=== PATIENT | female | born 1975 | race Hispanic/Latino ===

== ENCOUNTER 2018-03-12 02:47 | Emergency (ER) | payer BC, MEDICAID ==
[2018-03-12] MEDS ORDERED: ASPIRIN PO ONE (03:12)
[2018-03-12 03:54] LABS: Basophils # (Auto) 0.1 K/mm3 (0.0-0.1); Basophils % (Auto) 0.7 % (0.0-1.8); Eosinophils # (Auto) 0.2 K/mm3 (0.0-0.4); Eosinophils % (Auto) 3.4 % (0.0-4.3); Hematocrit 42.8 % (30.3-42.9); Hemoglobin 14.6 gm/dl (10.1-14.3); Lymphocytes # (Auto) 2.1 K/mm3 (1.2-5.4); Lymphocytes % (Auto) 29.2 % (13.4-35.0); Mean Corpuscular HGB Conc 34 % (30-34); Mean Corpuscular Hemoglobin 34 pg (28-32); Mean Corpuscular Volume 99 fl (79-97); Monocytes # (Auto) 0.5 K/mm3 (0.0-0.8); Monocytes % (Auto) 7.2 % (0.0-7.3); Platelet Count 250 K/mm3 (140-440); Red Blood Count 4.32 M/mm3 (3.65-5.03)
[2018-03-12 04:29] LABS: BUN/Creatinine Ratio 20; Blood Urea Nitrogen 14 mg/dL (7-17); Calcium 9.3 mg/dL (8.4-10.2); Hemolysis Index 10
[2018-03-12] MEDS ORDERED: NACL 0.9% 1000 ML 1,000 ML IV ONE (05:08)
[2018-03-12 05:19] LABS: Bilirubin,Urine NEG (Negative); Blood,Urine NEG (Negative); Color,Urine Straw (Yellow); Mucus,Urine FEW /HPF; Protein,Urine <15 mg/dL mg/dL (Negative); Urobilinogen,Urine < 2.0 mg/dL (<2.0)
[2018-03-12 05:20] LABS: HCG Qualitative,Urine Negative (Negative)
[2018-03-12 05:27] LABS: Amphetamine Screen,Urine PRESUMPTIVE NEGATIVE; Benzodiazepines Screen,Urine PRESUMPTIVE NEGATIVE; Cocaine Screen,Urine PRESUMPTIVE NEGATIVE; Methadone Screen,Urine PRESUMPTIVE NEGATIVE; Opiate Screen,Urine PRESUMPTIVE NEGATIVE
[2018-03-12 05:44] LABS: Cannabinoid Screen,Urine PRESUMPTIVE POSITIVE
--- NOTE | 2018-03-12 05:57 | Emergency Department Report ---
HPI - General Chief Complaint: Arrhythmia/Palpitations Time Seen by Provider: 03/12/18 03:38 - HPI HPI: 42-year-old female with history of tachycardia, was at home and felt some palpitations and a heart rate going up. She called ambulance or by the time they get their heart rate had gone back down to normal. She continued to ED for further eval. She denies any chest pain, shortness of breath. She stated that she was placed on the beta guanaco but could not tolerated due to the low blood pressure and fatigue. ED Past Medical Hx - Past Medical History Previous Medical History?: Yes Hx Asthma: Yes Additional medical history: SVT - Surgical History Past Surgical History?: No - Social History Smoking Status: Current Every Day Smoker Substance Use Type: Marijuana ED Review of Systems ROS: Stated complaint: CHEST PAIN Other details as noted in HPI Physical Exam - Physical Exam Vital Signs: Vital Signs 03/12/18 03/12/18 03/12/18 02:55 03:00 03:07 Temperature Pulse Rate 88 88 86 Respiratory 26 H 16 Rate Blood Pressure 102/71 102/71 102/71 O2 Sat by Pulse 95 97 96 Oximetry 03/12/18 03/12/18 03/12/18 03:16 03:23 03:30 Temperature 98.0 F Pulse Rate 84 94 H Respiratory 16 20 Rate Blood Pressure 106/47 95/42 O2 Sat by Pulse 96 97 Oximetry 03/12/18 03/12/18 03/12/18 03:32 03:46 04:00 Temperature Pulse Rate 92 H 91 H 90 Respiratory 18 22 18 Rate Blood Pressure 95/42 117/60 O2 Sat by Pulse 97 95 95 Oximetry 03/12/18 04:16 Temperature Pulse Rate 89 Respiratory 18 Rate Blood Pressure 110/61 O2 Sat by Pulse 95 Oximetry ED Course Vital Signs 03/12/18 03/12/18 03/12/18 02:55 03:00 03:07 Temperature Pulse Rate 88 88 86 Respiratory 26 H 16 Rate Blood Pressure 102/71 102/71 102/71 O2 Sat by Pulse 95 97 96 Oximetry 03/12/18 03/12/18 03/12/18 03:16 03:23 03:30 Temperature 98.0 F Pulse Rate 84 94 H Respiratory 16 20 Rate Blood Pressure 106/47 95/42 O2 Sat by Pulse 96 97 Oximetry 03/12/18 03/12/18 03/12/18 03:32 03:46 04:00 Temperature Pulse Rate 92 H 91 H 90 Respiratory 18 22 18 Rate Blood Pressure 95/42 117/60 O2 Sat by Pulse 97 95 95 Oximetry 03/12/18 04:16 Temperature Pulse Rate 89 Respiratory 18 Rate Blood Pressure 110/61 O2 Sat by Pulse 95 Oximetry ED Medical Decision Making - Lab Data Result diagrams: 03/12/18 03:31 03/12/18 03:31 Critical care attestation.: If time is entered above; I have spent that time in minutes in the direct care of this critically ill patient, excluding procedure time. ED Disposition Clinical Impression: Tachycardia Disposition: DC-01 TO HOME OR SELFCARE Is pt being admited?: No Does the pt Need Aspirin: No Condition: Stable Instructions: Supraventricular Tachycardia (ED), Palpitations (ED) Referrals: PRIMARY CARE, [Primary Care Provider] - 3-5 Days BETHANY MALCOLM MD [Staff Physician] - 3-5 Days
[2018-03-12 06:28] VITALS: BP 122/92
== END 2018-03-12 06:28 | disposition home or self-care (01) ==
LOC: ED 02:47
DX: R00.0 Tachycardia, unspecified (principal); J45.909 Unspecified asthma, uncomplicated; F17.200 Nicotine dependence, unspecified, uncomplicated; F12.10 Cannabis abuse, uncomplicated
CPT/HCPCS: 36415; 80048; 80307; 81001; 81025; 84484; 85025; 93005; 93010; 99284; J7030

== ENCOUNTER 2019-07-14 17:48 | Emergency (ER) | payer SELFPAY ==
[2019-07-14 18:02] VITALS: BP 148/90
== END 2019-07-14 18:45 | disposition left against medical advice (07) ==
LOC: ED 17:48
DX: R07.89 Other chest pain (principal); Z53.21 Procedure and treatment not carried out due to patient leaving prior to being seen by health care provider
CPT/HCPCS: 93005; 93010